=== PATIENT | female | born 2005 | race Caucasian/White ===

== ENCOUNTER 2025-02-11 12:12 | Emergency (ER) | payer MEDICAID ==
[~2025-02-11] VITALS: Ht 160 cm; Wt 49.2 kg
[2025-02-11 12:16] VITALS: BP 118/83; PULSE 91; RESP 15; O2SAT 100
[2025-02-11 15:32] VITALS: TEMP 98.9
== END 2025-02-11 15:36 | disposition home or self-care (01) ==
LOC: ER 12:13
DX: N94.6 Dysmenorrhea, unspecified (principal); F17.200 Nicotine dependence, unspecified, uncomplicated
CPT/HCPCS: 76856; 93976; 99284

== ENCOUNTER 2025-07-12 11:35 | Emergency (ER) | payer MEDICAID ==
[~2025-07-12] VITALS: Ht 160 cm; Wt 56.8 kg
[2025-07-12 11:48] VITALS: BP 115/66; PULSE 71; TEMP 97.9; O2SAT 98
[2025-07-12 12:05] VITALS: RESP 16
[2025-07-12] MEDS: ketorolac trometh 30MG/ML vial 30 MG/ML VIAL IM ONE (12:05)
--- NOTE | 2025-07-12 12:31 | Physician Documentation ---
History of Present Illness ~ Chief Complaint: Neck pain Stated Complaint: NECK PAIN Time Seen by MD: 11:53 [facility] 20-year-old patient presents to the ED with a complaint of left-sided neck pain for one day. 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 Denies any traumatic injury. denies any numbness or tingling. Day of Onset: Jul 12, 2025 Medication Reconciliation Allergies: Coded Allergies: No Known Allergies (Unverified , 11/02/24) Review of Systems All Other Systems at this time: Reviewed and Negative ROS As stated above in the HPI, otherwise all systems are reviewed and negative. Physical Exam Vital Signs: Temperature: 97.9, Source: Temporal, Heart Rate: 71, Respiratory Rate: 16, BP: 115/66, Pulse Oximetry: 98, Weight: 56.820 Physical Exam General: Alert, no apparent distress. Neck: Full range of motion. tender left side of neck via palpation Respiratory: Lungs clear, no respiratory distress. Neurologic: Oriented x4. Psychiatric: Normal mood and affect. Skin: Normal color, warm and dry. No edema, no ecchymosis. Progress Results/Orders Results/Orders Completed Orders - SAM MORALES NP Ketorolac Trometh 30mg/Ml Vial (Toradol (07/12/25 11:55) Medications Received in ER Medications (Trade) Dose Ordered Sig/Ute Route PRN Reason Start Time Stop Time Status Last Admin Dose Admin (Toradol inj. 30mg/ml) 30 mg ONCE ONCE IM 07/12/25 11:55 07/12/25 11:56 DC 07/12/25 12:05 30 MG Vital Signs 07/12/25 07/12/25 11:48 12:05 Temp 97.9 Pulse 71 Resp 18 16 B/P (MAP) 115/66 Pulse Ox 98 Medical Decision Making Findings Treated patient for a suspected cervical strain. She reported improved symptoms after receiving Toradol. Advised her to take ibuprofen as directed and ice the area . Differential Dx:Considerations: Include: Cervical muscle spasm, Discitis, DJD, Meningitis, Thyroiditis, Torticollis, Vertebral artery dissect., Other Departure Disposition: HOME / SELF CARE / HOMELESS Impression: Primary Impression: Neck pain Additional Impression: Strain of neck muscle Condition: Stable Discharge Instructions: Cervical Sprain Departure Forms: Excuse form Work or School Excused From: Work Excuse beginning now through the following date: Jul 13, 2025 May Return but still avoid physical Activity from now until: Jul 13, 2025 May Return to full physical activity as of: Jul 13, 2025 Referrals: NO PRIMARY CARE PROVIDER (PCP) Education Educated: Patient Educated regarding: diagnosis Signature Scribe Signature: rr Attestation: Scribed for Sam Morales [employer] by Sam Camilo NP . 07/12/25 17:42 SAM MORALES NP Jul 12, 2025 12:31
== END 2025-07-12 12:58 | disposition home or self-care (01) ==
LOC: ER 11:36
DX: S16.1XXA Strain of muscle, fascia and tendon at neck level, initial encounter (principal); X58.XXXA Exposure to other specified factors, initial encounter; Y93.89 Activity, other specified; Y92.89 Other specified places as the place of occurrence of the external cause; Y99.8 Other external cause status
CPT/HCPCS: 96372; 99283; J1885